=== PATIENT | male | born 1940 | race Two or more races ===

== ENCOUNTER 2017-11-12 13:17 | Emergency (ER) | payer MEDICARE, MEDICAID ==
[~2017-11-12] VITALS: Ht 165.1 cm; Wt 81.6 kg
[2017-11-12] MEDS ORDERED: PRILOSEC OTC20 MG ORAL (13:19)
[2017-11-12 13:20] VITALS: BP 137/63
[2017-11-12 13:55] LABS: HEMATOCRIT 38.3 % (42.0-52.0); HEMOGLOBIN 12.9 G/DL (14.2-18.0); MEAN CORPUSCULAR VOLUME 94 FL (80-99); PLATELET COUNT 247 K/UL (150-450); WHITE BLOOD COUNT 21.4 K/UL (4.8-10.8)
[2017-11-12 14:05] LABS: ANION GAP 11 mmol/L (5-15); BLOOD UREA NITROGEN 24 mg/dL (7-18); CALCIUM 8.2 MG/DL (8.5-10.1); CARBON DIOXIDE 26 MMOL/L (21-32); CHLORIDE 96 MMOL/L (98-107); CREATININE 1.7 MG/DL (0.55-1.30); POTASSIUM 4.3 MMOL/L (3.5-5.1); SODIUM 133 MMOL/L (136-145)
[2017-11-12 14:09] LABS: INR 1.2 (0.9-1.1)
[2017-11-12 14:17] LABS: ALANINE AMINOTRANSFERASE 28 U/L (12-78); ALBUMIN 2.3 G/DL (3.4-5.0); ALBUMIN/GLOBULIN RATIO 0.5 (1.0-2.7); ALKALINE PHOSPHATASE 106 U/L (46-116); ASPARTATE AMINO TRANSFERASE 44 U/L (15-37); BILIRUBIN,TOTAL 2.4 MG/DL (0.2-1.0)
[2017-11-12 14:18] LABS: BILIRUBIN,DIRECT 1.2 MG/DL (0.0-0.3)
--- NOTE | 2017-11-12 14:52 | Diagnostic Imaging Report ---
Indication: Abdominal pain Technique: Continuous helical transaxial imaging of the abdomen and pelvis was obtained from the lung bases to the pubic symphysis. No intravenous contrast was administered. Coronal 2-D reformats were also obtained. Automatic Exposure Control was utilized. Total Dose length Product (DLP): 916.[address] Dose Index Volume (CTDIvol): 15.91 mGy Comparison: none Findings: There are small bilateral pleural effusions on the left and a trace effusion on the right. There is moderate ascites present. There is nodularity of the liver surface. 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 The there is recanalization of the umbilical vein. Gallstones are present. 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 Aorta is moderately calcified. Bladder is mostly nondistended. There is prominence of the prostate gland. Bilateral inguinal hernias containing fat demonstrated. There is thickening of the wall the urinary bladder. The bladder is distended. Moderate compression fracture deformities of the T11 and T12 vertebra noted and a mild fracture of L5 noted. These are probably old. IMPRESSION: Moderate ascites. This is likely associated with chronic liver disease/cirrhosis. Stigmata of portal hypertension including portosystemic varices and recanalized umbilical vein are noted. Gallstones. Trace right pleural effusion and small left pleural effusion. Atherosclerotic disease. Mildly distended urinary bladder. Compression fracture deformities involving the T11 and T12 vertebra probably old. Correlate clinically. The CT scanner at [facility] is accredited by the [employer] and the scans are performed using dose optimization techniques as appropriate to a performed exam including Automatic Exposure control.
[2017-11-12] MEDS ORDERED: Cefepime HCl 2 GM in D5W 55 ML IVPB ONE (15:00)
--- NOTE | 2017-11-12 15:27 | Emergency Room Report ---
History of Present Illness General Chief Complaint: Generalized Weakness Source: Patient, Medical Record Present Illness HPI Patient is a 77-year-old male who presented after increased abdominal pain as well as abdominal distention. Patient reported having increased abdominal discomfort. He reported having had difficulty using the bathroom and had been able to have bowel movement for several days.The patient reports having increased generalized weakness. He denies prior history of liver disease.The patient reportedly used to drink in the past but does not actively drink alcohol. Allergies: Coded Allergies: No Known Allergies (Unverified , 12/16/13) Patient History Past Medical History: see triage record Reviewed Nursing Documentation: PMH: Agreed; PSxH: Agreed Nursing Documentation-PMH Past Medical History: No History, Except For Hx Diabetes: Yes - controlled by Diet Review of Systems All Other Systems: negative except mentioned in HPI Physical Exam Vital Signs Date Time Temp Pulse Resp B/P (MAP) Pulse Ox O2 Delivery O2 Flow Rate FiO2 11/12/17 13:11 97.3 106 18 133/81 100 Room Air 97.3 Sp02 EP Interpretation: reviewed, normal General Appearance: normal inspection, well appearing, alert, GCS 15, Chronically Ill Head: atraumatic ENT: normal ENT inspection, hearing grossly normal, normal voice Neck: normal inspection, full range of motion, supple, no bony tend Respiratory: normal inspection, lungs clear, normal breath sounds, no respiratory distress, no retraction, no wheezing Cardiovascular #1: regular rate, rhythm, no edema Gastrointestinal: non tender, soft, distended - mild diffuse tenderness Genitourinary: no CVA tenderness Musculoskeletal: normal inspection, back normal, normal range of motion Neurologic: normal inspection, alert, oriented x3, responsive, repair manager III-XII nml as tested, speech normal Psychiatric: normal inspection, judgement/insight normal, mood/affect normal Skin: normal inspection, no rash, jaundice Medical Decision Making Diagnostic Impression: Primary Impression: Abdominal pain Additional Impressions: Cirrhosis Leukocytosis Cholelithiasis ER Course Patient presented for abdominal pain. Differential diagnoses included ischemic bowel, appendicitis, perforated viscus, abdominal aortic aneurysm, inferior myocardial infarction, viral gastroenteritis Because of complexity of patient's case laboratory testing and imaging studies were ordered. The laboratory testing showed evidence of elevated white blood count. CT the abdomen pelvis read by radiology showed chronic liver disease and cirrhosis gallstones trace right pleural effusion and small left pleural effusion. Mildly distended urinary bladder and compression fractures of the T11 and T12 vertebra probably old. The patient started on IV antibiotics for presumed SBP. The patient was noted to have a markedly elevated white blood count as well as elevations of his liver transaminases consistent with cirrhosis. Patient was discussed with Dr. Kyle from [facility] for transfer to [facility]. Labs Test 11/12/17 13:30 White Blood Count 21.4 K/UL (4.8-10.8) Red Blood Count 4.10 M/UL (4.70-6.10) Hemoglobin 12.9 G/DL (14.2-18.0) Hematocrit 38.3 % (42.0-52.0) Mean Corpuscular Volume 94 FL (80-99) Mean Corpuscular Hemoglobin 31.6 PG (27.0-31.0) Mean Corpuscular Hemoglobin Concent 33.8 G/DL (32.0-36.0) Red Cell Distribution Width 12.0 % (11.6-14.8) Platelet Count 247 K/UL (150-450) Mean Platelet Volume 6.6 FL (6.5-10.1) Neutrophils (%) (Auto) % (45.0-75.0) Lymphocytes (%) (Auto) % (20.0-45.0) Monocytes (%) (Auto) % (1.0-10.0) Eosinophils (%) (Auto) % (0.0-3.0) Basophils (%) (Auto) % (0.0-2.0) Differential Total Cells Counted 100 Neutrophils % (Manual) 67 % (45-75) Lymphocytes % (Manual) 30 % (20-45) Monocytes % (Manual) 2 % (1-10) Eosinophils % (Manual) 1 % (0-3) Basophils % (Manual) 0 % (0-2) Band Neutrophils 0 % (0-8) Smudge Cells 1+ Platelet Estimate Adequate Platelet Morphology Normal Red Blood Cell Morphology Normal Prothrombin Time 13.0 SEC (9.30-11.50) Prothromb Time International Ratio 1.2 (0.9-1.1) Activated Partial Thromboplast Time 30 SEC (23-33) Sodium Level 133 MMOL/L (136-145) Potassium Level 4.3 MMOL/L (3.5-5.1) Chloride Level 96 MMOL/L (98-107) Carbon Dioxide Level 26 MMOL/L (21-32) Anion Gap 11 mmol/L (5-15) Blood Urea Nitrogen 24 mg/dL (7-18) Creatinine 1.7 MG/DL (0.55-1.30) Estimat Glomerular Filtration Rate mL/min (>60) Glucose Level 154 MG/DL (74-106) Calcium Level 8.2 MG/DL (8.5-10.1) Total Bilirubin 2.4 MG/DL (0.2-1.0) Direct Bilirubin 1.2 MG/DL (0.0-0.3) Aspartate Amino Transf (AST/SGOT) 44 U/L (15-37) Alanine Aminotransferase (ALT/SGPT) 28 U/L (12-78) Alkaline Phosphatase 106 U/L (46-116) Troponin I 0.000 ng/mL (0.000-0.056) Total Protein 6.7 G/DL (6.4-8.2) Albumin 2.3 G/DL (3.4-5.0) Globulin 4.4 g/dL Albumin/Globulin Ratio 0.5 (1.0-2.7) Lipase 306 U/L (73-393) Last Vital Signs Date Time Temp Pulse Resp B/P (MAP) Pulse Ox O2 Delivery O2 Flow Rate FiO2 11/12/17 13:20 97.3 100 14 137/63 96 Room Air 97.3 Status: unchanged Disposition: XFER SHT-TRM HOSP Condition: Serious Justin Ramos MD Nov 12, 2017 15:27
[2017-11-12 16:38] VITALS: BP 129/68
[2017-11-12 16:41] LABS: APPEARANCE,URINE CLEAR; BILIRUBIN, URINE 1+ (NEGATIVE); COLOR,URINE BROWN; GLUCOSE, URINE (UA) NEGATIVE (NEGATIVE); KETONES,URINE NEGATIVE (NEGATIVE); LEUKOCYTE ESTERASE ,URINE 1+ (NEGATIVE); NITRITE,URINE POSITIVE (NEGATIVE); PH,URINE 5 (4.5-8.0); PROTEIN,URINE 1+ (NEGATIVE); UROBILINOGEN,URINE 8 MG/DL (0.0-1.0)
[2017-11-12 17:18] VITALS: BP 190/96
[2017-11-12 17:33] VITALS: BP 131/72
[2017-11-12 18:30] VITALS: BP 127/69
[2017-11-12 18:40] VITALS: BP 127/69
--- NOTE | 2017-11-14 00:36 | Cardiology Report ---
APPROVED REPORT EKG Measurement Heart [id number] Normal sinus rhythm Left axis deviation Low voltage QRS Incomplete right bundle branch block Prolonged QT Abnormal ECG
== END 2017-11-12 18:40 | disposition short-term general hospital (02) ==
LOC: EDBD 13:17 → EMR 13:48
DX: R10.9 Unspecified abdominal pain (principal); K74.60 Unspecified cirrhosis of liver; D72.829 Elevated white blood cell count, unspecified; K80.20 Calculus of gallbladder without cholecystitis without obstruction; E11.9 Type 2 diabetes mellitus without complications; R18.8 Other ascites
CPT/HCPCS: 36415; 74176; 80053; 81003; 82248; 83605; 83690; 84484; 85007; 85025; 85610; 85730; 86850; 86900; 86901; 87040; 87086; 93005; 96365; 96367; 96375; 99284; J2405; 96360; 96361; 96374